=== PATIENT | male | born 1985 | race African-American/Black ===

== ENCOUNTER 2019-03-20 03:22 | Inpatient (IN) | payer MEDICAID ==
[~2019-03-20] VITALS: Ht 182.9 cm; Wt 74.5 kg
[2019-03-20] MEDS ORDERED: MORPHINE SULFATE 4 MG/ML CPJ (NOT FOR IM USE) IV STA (04:09)
[2019-03-20] MEDS ORDERED: ONDANSETRON HCL 4MG/2ML INJ IV STA (04:09)
[2019-03-20] MEDS ORDERED: FAMOTIDINE 20MG/2ML VIAL IV STA (04:09)
[2019-03-20 04:48] LABS: CHLORIDE 106 mEq/L (98-107)
[2019-03-20 04:51] LABS: BASOPHILS % 0.3 % (0.0-2.0); CLARITY URINE CLOUDY (CLEAR); COLOR URINE YELLOW (YELLOW); EOSINOPHILS % 1.7 % (0.0-5.0); HEMATOCRIT. 41.3 % (42.0-52.0); HEMOGLOBIN. 13.8 g/dL (14.0-18.0); KETONES URINE TRACE (NEGATIVE); LEUKOCYTE ESTERASE URINE 1+ (NEGATIVE); LYMPHOCYTES % 20.1 % (20.0-50.0); MEAN CORPUSCULAR HEMOGLOBIN 30.9 pg (28.0-32.0); MEAN CORPUSCULAR VOLUME 92.6 fL (80.0-94.0); MEAN PLATELET VOLUME 7.2 fl (7.4-10.4); MONOCYTES % 8.1 % (2.0-8.0); NEUTROPHILS % 69.8 % (40.0-76.0); NITRITE URINE NEGATIVE (NEGATIVE); OCCULT BLOOD URINE NEGATIVE (NEGATIVE); PH URINE 5.5 (4.5-8.0); PLATELET 389 x1000/uL (130-400); PROTEIN URINE NEGATIVE (NEGATIVE); RED BLOOD CELL COUNT 4.47 mill/uL (4.7-6.1); RED CELL DISTRIBUTION WIDTH 13.5 % (11.6-14.6); SPECIFIC GRAVITY URINE 1.029 (1.005-1.030); UROBILINOGEN URINE 0.2 E.U./dL (0.2-1.0)
[2019-03-20 05:01] LABS: PROTHROMBIN TIME 10.1 sec (9.6-11.0)
[2019-03-20] MEDS ORDERED: MORPHINE SULFATE 2 MG/ML CPJ (NOT FOR IM USE) IV PRN (07:00)
[2019-03-20] MEDS ORDERED: MAGNESIUM/ALUMINUM HYDROXIDE/SIMETHICONE 30ML UDC PO PRN (07:00)
[2019-03-20] MEDS ORDERED: ACETAMINOPHEN 325MG TABLET PO PRN (07:00)
[2019-03-20] MEDS ORDERED: CLONIDINE 0.1MG TABLET PO PRN (07:00)
[2019-03-20] MEDS ORDERED: LEVOFLOXACIN 500MG PREMIX 100 ML IV SCH (07:00)
[2019-03-20] MEDS ORDERED: ONDANSETRON HCL 4MG/2ML INJ IV PRN (07:00)
[2019-03-20] MEDS ORDERED: METRONIDAZOLE 500 MG PREMIX 100 ML IV SCH ×2 (07:08→14:00)
[2019-03-20 09:00] VITALS: BP 128/84
[2019-03-20] MEDS ORDERED: HYDROMORPHONE HCL/PF 2MG/ML CPJ IV PRN (09:30)
[2019-03-20 12:00] VITALS: BP 114/75
[2019-03-20] MEDS: DEXT 5%/0.45% NACL 1000ML 1,000 ML IV SCH (12:59)
[2019-03-20] MEDS: METRONIDAZOLE 500 MG PREMIX 100 ML IV SCH ×2 (13:01→19:03)
[2019-03-20] MEDS ORDERED: KETOROLAC 15MG/ML VIAL IV PRN (13:30)
[2019-03-20 14:00] VITALS: BP 114/75
[2019-03-20 16:00] VITALS: BP 121/80
[2019-03-20] MEDS: LEVOFLOXACIN 500MG PREMIX 100 ML IV SCH (18:59)
[2019-03-20 20:00] VITALS: BP 124/90
[2019-03-21] VITALS: BP 110/74
[2019-03-21] MEDS: METRONIDAZOLE 500 MG PREMIX 100 ML IV SCH ×2 (02:23→09:47)
[2019-03-21 04:00] VITALS: BP 106/64
[2019-03-21] MEDS: DEXT 5%/0.45% NACL 1000ML 1,000 ML IV SCH (05:40)
[2019-03-21 10:14] LABS: BASOPHILS % 0.2 % (0.0-2.0); EOSINOPHILS % 3.4 % (0.0-5.0); HEMATOCRIT. 42.4 % (42.0-52.0); HEMOGLOBIN. 13.8 g/dL (14.0-18.0); LYMPHOCYTES % 30.6 % (20.0-50.0); MEAN CORPUSCULAR VOLUME 92.5 fL (80.0-94.0); MEAN PLATELET VOLUME 7.2 fl (7.4-10.4); MONOCYTES % 9.5 % (2.0-8.0); NEUTROPHILS % 56.3 % (40.0-76.0); PLATELET 386 x1000/uL (130-400); RED BLOOD CELL COUNT 4.58 mill/uL (4.7-6.1); RED CELL DISTRIBUTION WIDTH 13.2 % (11.6-14.6)
[2019-03-21 10:20] LABS: CHLORIDE 105 mEq/L (98-107)
[2019-03-21] MEDS: LEVOFLOXACIN 500MG PREMIX 100 ML IV SCH (11:00)
[2019-03-21 12:09] VITALS: BP 111/66
[2019-03-21 12:39] VITALS: BP 107/69
[2019-03-23 09:11] LABS: SACCHAROMYCES CEREVISIAE IGM <20.0 Units (0.0-24.9)
[2019-03-23 15:06] LABS: ATYPICAL pANCA <1:20 titer (Neg:<1:20)
[2019-03-27 09:08] LABS: SACCHAROMYCES CEREVISIAE IGG 30.6 Units (0.0-24.9)
== END 2019-03-21 14:50 | disposition home or self-care (01) | DRG 254 ==
LOC: ER 03:22 → 5WST 05:38 → EDBEDREQTM 05:41 → EDBEDREQ 05:41 → ENRESERV 07:25
PROVIDERS: ADMIT Hospitalist; ATTEND Hospitalist
DX: K58.0 Irritable bowel syndrome with diarrhea (principal)
CPT/HCPCS: 36415; 74176; 82270; 83605; 86256; 86671; 86850; 86900; 87015; 87045; 87427; 87449; 87493; 89055; 96374; 99285; J1170; J1885; J1956; J2270; J2405; J3490

== ENCOUNTER 2022-05-15 22:54 | Emergency (ER) | payer MEDICAID ==
[~2022-05-15] VITALS: Ht 172.7 cm; Wt 80.0 kg
[2022-05-15 23:29] VITALS: BP 120/73
[2022-05-15] MEDS ORDERED: MORPHINE SULFATE 4 MG/ML CPJ (NOT FOR IM USE) IV STA (23:29)
[2022-05-15] MEDS ORDERED: ONDANSETRON HCL 4MG/2ML INJ IV STA (23:29)
[2022-05-15] MEDS ORDERED: HYDROCORTISONE ACETATE 25MG SUPP PR SCH (23:30)
[2022-05-16 00:07] LABS: BASOPHILS % 0.4 % (0.0-2.0); EOSINOPHILS % 2.9 % (0.0-5.0); HEMATOCRIT. 34.4 % (42.0-52.0); HEMOGLOBIN. 11.3 g/dL (14.0-18.0); LYMPHOCYTES % 18.5 % (20.0-50.0); MEAN CORPUSCULAR HEMOGLOBIN 31.2 pg (28.0-32.0); MEAN PLATELET VOLUME 6.8 fl (7.4-10.4); MONOCYTES % 12.5 % (2.0-8.0); NEUTROPHILS % 65.7 % (40.0-76.0); PLATELET 322 x1000/uL (130-400); RED BLOOD CELL COUNT 3.63 mill/uL (4.7-6.1); RED CELL DISTRIBUTION WIDTH 14.7 % (11.6-14.6)
[2022-05-16 00:13] LABS: CHLORIDE 100 mEq/L (98-107)
[2022-05-16] MEDS ORDERED: HYDR30CR80 TP (01:29)
[2022-05-16] MEDS ORDERED: HYDR-4001 MT (01:29)
== END 2022-05-16 02:31 | disposition home or self-care (01) ==
LOC: ER 22:54
DX: K62.89 Other specified diseases of anus and rectum (principal); B04 Monkeypox
CPT/HCPCS: 36415; 80053; 85025; 87593; 96374; 96375; 99284; J2270; J2405

== ENCOUNTER 2022-05-19 08:44 | Emergency (ER) | payer MEDICAID ==
[~2022-05-19] VITALS: Ht 177.8 cm; Wt 82.0 kg
[~2022-05-19 08:44] MED LIST: HYDR-4001 MT; HYDR30CR80 TP
[2022-05-19] MEDS ORDERED: ONDANSETRON HCL 4MG/2ML INJ IV STA (09:06)
[2022-05-19] MEDS ORDERED: MORPHINE SULFATE 4 MG/ML CPJ (NOT FOR IM USE) IV STA (09:06)
[2022-05-19] MEDS ORDERED: SODIUM CHLORIDE 0.9% 1,000 ML IV ONE (09:15)
[2022-05-19] MEDS ORDERED: CEFTRIAXONE 1 G PREMIX 50 ML IV ONE (09:15)
[2022-05-19] MEDS ORDERED: SULFAMETHOXAZOLE/TRIMETHOPRIM 800/160MG TABLET PO ONE (09:15)
[2022-05-19 09:54] LABS: BASOPHILS % 0.3 % (0.0-2.0); EOSINOPHILS % 1.1 % (0.0-5.0); HEMATOCRIT. 37.5 % (42.0-52.0); HEMOGLOBIN. 12.1 g/dL (14.0-18.0); LYMPHOCYTES % 15.7 % (20.0-50.0); MEAN CORPUSCULAR HEMOGLOBIN 30.8 pg (28.0-32.0); MEAN CORPUSCULAR VOLUME 95.1 fL (80.0-94.0); MEAN PLATELET VOLUME 7.7 fl (7.4-10.4); MONOCYTES % 11.2 % (2.0-8.0); NEUTROPHILS % 71.7 % (40.0-76.0); PLATELET 395 x1000/uL (130-400); RED BLOOD CELL COUNT 3.94 mill/uL (4.7-6.1); RED CELL DISTRIBUTION WIDTH 14.8 % (11.6-14.6)
[2022-05-19 10:01] LABS: CHLORIDE 101 mEq/L (98-107)
[2022-05-19] MEDS ORDERED: SULF1TAB48 MT (10:18)
[2022-05-19] MEDS ORDERED: CEPH500C2 MT (10:18)
[2022-05-19] MEDS ORDERED: HYDR-4001 MT (10:18)
[2022-05-19] MEDS ORDERED: BENZ9GEL TP (10:20)
[2022-05-19] MEDS ORDERED: DOCUSATE SODIUM SUGAR FREE 100MG/10ML UDC NG ONE (12:30)
[2022-05-19 13:56] VITALS: BP 148/78
== END 2022-05-19 15:21 | disposition home or self-care (01) ==
LOC: ER 08:44
DX: R21 Rash and other nonspecific skin eruption (principal); K62.5 Hemorrhage of anus and rectum; K64.9 Unspecified hemorrhoids; L03.114 Cellulitis of left upper limb
CPT/HCPCS: 36415; 80048; 85025; 96365; 96375; 99284; J0696; J2270; J2405; J7030